=== PATIENT | female | born 1980 | race Caucasian/White ===

== ENCOUNTER 2018-09-11 08:25 | Emergency (ER) | payer OTHER ==
[2018-09-11 08:36] VITALS: RESP 18; TEMP 98.7
--- NOTE | 2018-09-11 10:54 | ED PDOC ---
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 is a healthy 38 y/o F complaining of 3 week history of left breast pain. Pt. reports small area to left of nipple feels like a "stinging, pinching pain" which is constant and mild. Pt. denies nipple discharge, skin changes or noticeable swelling. Pt. reports similar pain in past "a while ago" and her doctor told her she had "lumps".) Additional Complaint(s): Pt. is a healthy 38 y/o F complaining of 3 week history of left breast pain, described as a "stinging/pinching" sensation which is constant and mild. Pt. de nies any nipple discharge, skin changes, or noticeable swelling. Pt. denies any personal or family h/o breast, uterine or ovarian CA. Past Medical History Vital Signs: Last Vital Signs Temp 98.7 F 09/11/18 08:35 Pulse 87 09/11/18 08:35 Resp 18 09/11/18 08:35 BP 121/78 09/11/18 08:35 Pulse Ox 99 09/11/18 08:35 - Medical History PMH: No Chronic Diseases - Surgical History Surgical History: No Surg Hx - Family History Family History: States: No Known Family Hx - Allergies Allergies/Adverse Reactions: Allergies Allergy/AdvReac Type Severity Reaction Status Date / Time No Known Allergies Allergy Verified 09/11/18 08:40 Review of Systems Constitutional: Negative for: Fever, Chills, Weight loss Skin: Negative for: Rash Physical Exam - Reviewed Vital Signs Reviewed: Yes - Physical Exam Appears: Positive for: Well, Non-toxic Skin: Positive for: Normal Color Cardiovascular/Chest: Positive for: Other (LEFT BREAST: no appreciable mass or swelling, (-) localized tenderness, (-) peau d'orange, (-) erythema, (-) induration, (-) fluctuance, (-) axillary adenopathy.) - ECG O2 Sat by Pulse Oximetry: 99 Medical Decision Making Medical Decision Making: Exam as above, no mass palpated, no evidence of infectious process. I stressed importance of close f/u with her own obygn (forgets name) or [facility] (referral given) as imaging and futher work up will be necessary; no need for emergent work up in ED. Disposition - Clinical Impression Clinical Impression: Pain of breast - Patient ED Disposition Is Patient to be Admitted: No Counseled Patient/Family Regarding: Diagnosis, Need For Followup - Disposition [facility]errals: [facility] [Outside] Disposition: Routine/Home Disposition Time: 11:00 Condition: GOOD Instructions: Mastalgia (DC) Forms: [facility] ([place]) Print Language: LATVIAN
[2018-09-11 11:24] VITALS: BP 120/72; PULSE 78
[2018-09-11 12:09] VITALS: O2SAT 99
== END 2018-09-11 11:25 | disposition home or self-care (01) ==
LOC: H.ER 08:25
DX: N64.4 Mastodynia (principal)